=== PATIENT | female | born 1980 | race Hispanic/Latino ===

== ENCOUNTER 2017-03-31 15:32 | Emergency (ER) | payer BC ==
[2017-03-31] MEDS ORDERED: Ondansetron ODT 4 MG TAB ONE (15:53)
[2017-03-31 16:00] LABS: Clarity Slightly Cloudy (Clear); Pregnancy Test - Urine (BHCG) Negative (Negative); Pregu Control Background? CLEAR/WHITE (CLR/WHITE); Pregu Control Bar Appear? YES (CONTROL BAR); Specific Gravity 1.025 (1.002-1.036)
[2017-03-31 16:01] LABS: Bilirubin Negative (Negative); Blood, Urine Large (Negative); Glucose, Urine (Dipstick) Negative (Negative); Leukocyte Negative (Negative); Nitrite Positive (Negative); Protein, Urine (Dipstick) Trace mg/dL (Neg-Trace); Specific Gravity, Urine 1.025 (1.005-1.030); Urobilinogen 0.2 mg/dL (0.2-1.0)
[2017-03-31] MEDS ORDERED: Acetaminophen 500 MG TAB ONE (16:04)
[2017-03-31] MEDS ORDERED: Metoclopramide HCl 10 MG TAB ONE (16:04)
[2017-03-31] MEDS ORDERED: Ketorolac Tromethamine 60 MG/2 ML VIAL ONE (16:04)
[2017-03-31] MEDS ORDERED: diphenhydrAMINE HCl 25 MG CAP ONE (16:04)
[2017-03-31 16:05] LABS: Bacteria/HPF 3+ HPF (None Seen)
== END 2017-03-31 16:29 | disposition home or self-care (01) ==
LOC: MADERS 15:32
DX: K52.9 Noninfective gastroenteritis and colitis, unspecified (principal)
CPT/HCPCS: 81003; 81015; 81025; 96372; J1885; Q0162

== ENCOUNTER 2017-06-16 08:52 | Outpatient (CLI) | payer BC ==
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
== END 2017-06-16 08:53 | disposition home or self-care (01) ==
LOC: MADRAD 08:52
PROVIDERS: ATTEND Family Medicine
DX: S09.93XA Unspecified injury of face, initial encounter (principal)
CPT/HCPCS: 70110

== ENCOUNTER 2018-06-06 20:10 | Emergency (ER) | payer BC ==
[~2018-06-06 20:10] MED LIST: Sodium Chloride 0.9% 1,000 ML BAG ONE
[2018-06-06] MEDS ORDERED: Promethazine HCl 25 MG/ML VIAL ONE (20:41)
[2018-06-06] MEDS ORDERED: Famotidine In NaCl 20 mg/50 ml Premix Bag ONE (20:41)
[2018-06-06 20:53] LABS: Bilirubin Negative (Negative); Blood, Urine Large (Negative); Glucose, Urine (Dipstick) Negative (Negative); Leukocyte Trace (Negative); Nitrite Negative (Negative); Protein, Urine (Dipstick) Trace mg/dL (Neg-Trace); Urobilinogen 0.2 mg/dL (0.2-1.0)
[2018-06-06 20:54] LABS: Clarity Hazy (Clear); Specific Gravity, Urine 1.026 (1.002-1.036)
[2018-06-06 20:55] LABS: Pregnancy Test - Urine (BHCG) Negative (Negative); Pregu Control Background? CLEAR/WHITE (CLR/WHITE); Pregu Control Bar Appear? YES (CONTROL BAR); Specific Gravity 1.026 (1.002-1.036)
[2018-06-06 20:58] LABS: Bacteria/HPF 2+ HPF (None Seen)
[2018-06-06] MEDS ORDERED: Diphenoxylate HCl/Atropine Tablet ONE (22:03)
[2018-06-06] MEDS ORDERED: Loperamide HCl 2 MG CAP ONE (22:03)
== END 2018-06-06 23:25 | disposition home or self-care (01) ==
LOC: MADERS 20:10
DX: K52.9 Noninfective gastroenteritis and colitis, unspecified (principal)
CPT/HCPCS: 81003; 81015; 81025; 96361; 96365; 96368; J2550; J7050